=== PATIENT | female | born 1960 | race African-American/Black ===

== ENCOUNTER 2018-10-07 10:53 | Day surgery (SDC) | payer OTHER ==
[2018-10-07 11:39] VITALS: BMI 28.8
[2018-10-07 12:53] VITALS: TEMP 97.7
[2018-10-07 14:03] VITALS: BP 112/60; PULSE 84
--- NOTE | 2018-10-10 18:54 | PATH ---
Surgical Pathology Report Patient Name: LOUISE HILLMAN [facility]. Rec. #: [id number] /Age/Gender: 1960 (Age: 57) / F Account: [id number] Location: U-ENDOSCOPY Taken: 10/07/2018 Received: 10/07/2018 Reported: 10/10/2018 Physicians: Gloria Ramirez M.D. Specimen(s) Received A: DUODENUM, SECOND PORTION AND DUODENAL BULB B: GASTRIC ANTRUM C: GASTRIC FUNDUS POLYP D: SIGMOID POLYP E: DESCENDING COLON AND ANAL POLYP Clinical History Family history of gastric cancer, colon cancer screening Postoperative diagnosis: Gastric fundus polyps, colon polyps Final Diagnosis A. DUODENUM, SECOND PORTION AND DUODENAL BULB, BIOPSY: DUODENAL MUCOSA WITH MODERATE CHRONIC DUODENITIS. B. GASTRIC, ANTRUM, BIOPSY: GASTRIC MUCOSA WITH MILD CHRONIC GASTRITIS. IMMUNOHISTOCHEMICAL STAIN FOR H. PYLORI IS NEGATIVE. C. GASTRIC POLYP, FUNDUS, POLYPECTOMY: GASTRIC MUCOSA WITH MILD CHRONIC GASTRITIS AND RARE DILATED GLAND SUGGESTIVE OF FUNDIC GLAND POLYP. IMMUNOHISTOCHEMICAL STAIN FOR H. PYLORI IS NEGATIVE. D. SIGMOID POLYP, POLYPECTOMY: POLYPOID COLONIC MUCOSA WITH SMALL LYMPHOID AGGREGATES AND SUPERFICIAL HYPERPLASTIC FEATURES. E. DESCENDING COLON AND ANAL POLYP, BIOPSY/POLYPECTOMY: BENIGN CYSTIC LESION WITH OVERLYING SQUAMOUS MUCOSA COMPATIBLE WITH TAILGUT DUPLICATION CYST. POLYPOID COLONIC MUCOSA WITH PROMINENT LYMPHOID AGGREGATE AND FOCAL SUPERFICIAL HYPERPLASTIC FEATURES. SEE COMMENT. Comment: Deeper levels have been examined. Suggest clinical and endoscopic correlation. Electronically Signed Vandana Meléndez M.D. Gross Description A. Received in formalin, labeled "biopsy second portion of duodenum and duodenal bulb" are 3 purcell, irregular portions of soft tissue averaging 0.4 cm. in greatest dimension. The specimens are submitted in toto in one cassette. B. Received in formalin, labeled "biopsy gastric antrum" are 4 purcell, irregular portions of soft tissue ranging from 0.3-0.5 cm. in greatest dimension. The specimens are submitted in toto in one cassette. C. Received in formalin, labeled "biopsy gastric fundus polyp" are 4 purcell, irregular portions of soft tissue ranging from 0.2-0.5 cm. in greatest dimension. The specimens are submitted in toto in one cassette. D. Received in formalin, labeled "biopsy sigmoid polyp" are 2 purcell, irregular portions of soft tissue measuring 0.2 and 0.6 cm. in greatest dimension. The specimens are submitted in toto in one cassette. E. Received in formalin, labeled "biopsy descending colon polyp" are 4 purcell, irregular portions of soft tissue ranging from 0.1-0.5 cm. in greatest dimension. The specimens are submitted in toto in one cassette. 10/07/2018 [facility]/07/2018
== END 2018-10-07 14:09 | disposition home or self-care (01) ==
LOC: JASU-ENDO 10:53
PROVIDERS: ATTEND Internal Medicine Gastroenterology
PROC: 0DBM8ZX Excision of Descending Colon, Via Natural or Artificial Opening Endoscopic, Diagnostic (ICD-10-PCS; 2018-10-07)
PROC: 0DBN8ZX Excision of Sigmoid Colon, Via Natural or Artificial Opening Endoscopic, Diagnostic (ICD-10-PCS; 2018-10-07)
PROC: 0DB68ZX Excision of Stomach, Via Natural or Artificial Opening Endoscopic, Diagnostic (ICD-10-PCS; 2018-10-07)
PROC: 0DBP8ZX Excision of Rectum, Via Natural or Artificial Opening Endoscopic, Diagnostic (ICD-10-PCS; principal; 2018-10-07 11:00)
DX: Z12.11 Encounter for screening for malignant neoplasm of colon (principal); D12.4 Benign neoplasm of descending colon; D12.5 Benign neoplasm of sigmoid colon; K62.1 Rectal polyp; K31.7 Polyp of stomach and duodenum; K29.80 Duodenitis without bleeding; K29.50 Unspecified chronic gastritis without bleeding; Z80.0 Family history of malignant neoplasm of digestive organs
CPT/HCPCS: 88305-TC; 88342-TC

== ENCOUNTER → 2021-01-23 | Day surgery (SDC) | payer OTHER | END | disposition home or self-care (01) | LOC: FMAMMOTONE 12:43 | PROVIDERS: ATTEND Internal Medicine | PROC: 0HBT3ZX Excision of Right Breast, Percutaneous Approach, Diagnostic (ICD-10-PCS; principal; 2021-01-23) | DX: N60.21 Fibroadenosis of right breast (principal); N64.89 Other specified disorders of breast; R92.0 Mammographic microcalcification found on diagnostic imaging of breast | CPT/HCPCS: 19081; 76098-TC-FY; 87899; 88305-TC; A4648 ==

== ENCOUNTER 2023-10-11 04:12 | Day surgery (SDC) | payer OTHER ==
[2023-10-08 14:19] VITALS: BMI 29.5
[2023-10-11 09:42] VITALS: BP 106/58; PULSE 59; RESP 17; TEMP 98.5
== END 2023-10-11 09:43 | disposition home or self-care (01) ==
LOC: JASU-ENDO 04:12
PROVIDERS: ATTEND Internal Medicine Gastroenterology
PROC: 0DJD8ZZ Inspection of Lower Intestinal Tract, Via Natural or Artificial Opening Endoscopic (ICD-10-PCS; principal; 2023-10-11 08:00)
DX: Z12.11 Encounter for screening for malignant neoplasm of colon (principal); Z86.010 Personal history of colon polyps